=== PATIENT | female | born 1985 | race Two or more races ===

== ENCOUNTER 2018-04-08 12:12 | Emergency (ER) | payer OTHER ==
[~2018-04-08] VITALS: Ht 165.1 cm; Wt 78.5 kg
[2018-04-08 12:33] VITALS: BP 132/78
[2018-04-08] MEDS ORDERED: KETOROLAC TROMETHAMINE INJ 30 MG/ML VIAL ONE (13:45)
[2018-04-08] MEDS ORDERED: DEXAMETHASONE SOD PHOSPHATE 10 MG/ML VIAL ONE (13:45)
[2018-04-08] MEDS ORDERED: ONDANSETRON 4 MG TAB.RAPDIS ONE (13:46)
[2018-04-08] MEDS ORDERED: ONDANSETRON 4 MG TAB.RAPDIS SL ONE (14:00)
[2018-04-08] MEDS ORDERED: KETOROLAC TROMETHAMINE INJ 60 MG/2 ML VIAL IM ONE (14:00)
[2018-04-08] MEDS ORDERED: DEXAMETHASONE SOD PHOSPHATE 4 MG/ML VIAL IM ONE (14:00)
[2018-04-08 14:30] LABS: MONOTEST NEGATIVE (NEGATIVE)
--- NOTE | 2018-04-08 14:51 | NUR ---
VERBALIZED UNDERSTANDING OF ACI AND RX, TO ROOM 18 TO WAIT FOR URINALYSIS RESULT.
[2018-04-08 14:56] LABS: APPEARANCE,URINE Clear (CLEAR); BILIRUBIN,URINE Negative (NEGATIVE); BLOOD, URINE Negative Ery/uL (NEGATIVE); COLOR,URINE Yellow (YELLOW); KETONES,URINE Negative (NEGATIVE); LEUKOCYTE ESTERASE ,URINE Trace (NEGATIVE); NITRITE, URINE Negative (NEGATIVE); PROTEIN,URINE Negative (NEGATIVE); UGLUCOSE Negative (NEGATIVE); UROBILINOGEN,URINE 0.2 EU/dL (0.2)
[2018-04-08 15:06] LABS: BACTERIA,URINE None seen /HPF (None Seen); RBC,URINE 0-3 /HPF (0-2); SQUAMOUS EPITHELIAL CELL,UR Few /HPF (None Seen)
--- NOTE | 2018-04-08 15:16 | NUR ---
UA RESULT BACK,NEGATIVE FOR INFECTION PER MARSHAL GLASS
--- NOTE | 2018-04-08 15:17 | NUR ---
Patient discharged to home in stable condition. Written and verbal after care instructions given. Patient verbalizes understanding of instruction.
== END 2018-04-08 15:18 | disposition home or self-care (01) ==
LOC: ER 12:15
DX: J02.9 Acute pharyngitis, unspecified (principal); B34.9 Viral infection, unspecified; R11.0 Nausea
CPT/HCPCS: 36415; 81001; 84703; 86308; 87070; 87804 ×2; 87880; 96372 ×2; 99283; A4606; J1100; J1885; Q0162; Z7610; 81000-TC; 86403-TC; 87400